=== PATIENT | male | born 1970 | race Two or more races ===

== ENCOUNTER 2018-02-25 12:11 | Emergency (ER) | payer OTHER ==
[~2018-02-25] VITALS: Ht 167.6 cm; Wt 95.0 kg
[~2018-02-25 12:11] MED LIST: [UNRECOGNIZED DRUG - OTHER] PO
[2018-02-25 13:33] LABS: ALBUMIN 4.1 g/dL (3.4-5.0); ANION GAP 8 mmol/L (5-15); CALCIUM 8.2 mg/dL (8.5-10.1); CHLORIDE 109 mmol/L (98-107); CREATININE 1.27 mg/dL (0.7-1.3)
[2018-02-25] MEDS ORDERED: LORazepam 1MG TABLET ONE (13:46)
[2018-02-25] MEDS ORDERED: LORazepam 1MG TABLET PO ONE (14:00)
[2018-02-25 14:06] LABS: BASOPHILS # (AUTO) 0.01 x10^3/uL (0-0.1); BASOPHILS % (AUTO) 0 % (0-1); EOSINOPHILS # (AUTO) 0.01 x10^3/uL (0-0.4); EOSINOPHILS % (AUTO) 0 % (1-7); LYMPHOCYTES # (AUTO) 0.64 x10^3/uL (1-3.4); LYMPHOCYTES % (AUTO) 4 % (22-44); MD NO; MEAN CORPUSCULAR HEMOGLOBIN 30.4 pg (27.5-34.5); MEAN CORPUSCULAR HGB CONC 33.8 g/dL (33.2-36.2); MEAN CORPUSCULAR VOLUME 90.1 fL (81-97); MEAN PLATELET VOLUME 9.9 fL (7.4-10.4); MONOCYTES # (AUTO) 0.79 x10^3/uL (0.2-0.8); MONOCYTES % (AUTO) 5 % (2-9); NEUTROPHILS # (AUTO) 13.09 x10^3/uL (1.8-6.8); NEUTROPHILS % (AUTO) 90 % (42-75); PLATELET COUNT 229 x10^3/uL (130-400); RED CELL DISTRIBUTION WIDTH 13.1 % (9.4-14.8)
[2018-02-25 15:31] VITALS: BP 106/68
== END 2018-02-25 15:33 | disposition home or self-care (01) ==
LOC: ED 15:27
DX: G40.309 Generalized idiopathic epilepsy and epileptic syndromes, not intractable, without status epilepticus (principal)
CPT/HCPCS: 36415; 80048; 80185; 82040; 85025; 93005; 99285